=== PATIENT | male | born 1980 | race Two or more races ===

== ENCOUNTER 2020-04-23 15:14 | Emergency (ER) | payer BC ==
[2020-04-23] MEDS ORDERED: Ketorolac 30 MG/ML SDV IVPUSH ONE (15:42)
--- NOTE | 2020-04-23 15:43 | EDM.PDOC ---
ED HPI GENERAL MEDICAL PROBLEM - General Chief Complaint: Respiratory Problem Stated Complaint: SOB/FEVER/SHOULDER/BACK PAIN Time Seen by Provider: 04/23/20 15:31 Source of Information: Reports: Patient, RN Notes Reviewed History Limitations: Reports: No Limitations, Language Barrier (pt is primarily kyrgyz speaking, but does understand Icelandic well) - History of Present Illness INITIAL COMMENTS - FREE TEXT/NARRATIVE: Patient is a 40-year-old male who presents to the ED for the evaluation of his shortness of breath, fever, cough, body aches. Patient is primarily Dominican-sp eaking, but does understand Icelandic well. Patient's vitals, pulse is 106 bpm, temperature is 100.2 F, respiratory rate of 35, blood pressure is 127/68, O2 sats are 85 to 89% on room air. Patient states that this all started fairly quickly yesterday. He notes he has been struggling to breathe since then. He doesn't recall anyone else has been sick like this at home. He did not take any sort of ibuprofen or Tylenol for pain management or otherwise. He denies any prior lung issues or heart issues. - Related Data Allergies Allergy/AdvReac Type Severity Reaction Status Date / Time No Known Allergies Allergy Verified 04/23/20 15:27 Home Meds: Home Meds . [No Known Home Meds] 04/23/20 [History] Past Medical History - Past Health History Medical/Surgical History: Denies Medical/Surgical History Social & Family History - Family History Family Medical History: No Pertinent Family History - Tobacco Use Tobacco Use Status *Q: Never Tobacco User - Caffeine Use Caffeine Use: Reports: Coffee, Soda - Recreational Drug Use Recreational Drug Use: No ED ROS GENERAL - Review of Systems Review Of Systems: Comprehensive ROS is negative, except as noted in HPI. ED EXAM, GENERAL - Physical Exam Exam: See Below Exam Limited By: No Limitations General Appearance: Alert, WD/WN, Mild Distress (pt does appear dyspenic and is taking short, splinting breaths) Respiratory/Chest: No Respiratory Distress, Lungs Clear, No Accessory Muscle Use, Chest Non-Tender, Decreased Breath Sounds (diffuse bilaterally) Cardiovascular: Normal Peripheral Pulses, Regular Rate, Rhythm, No Edema, No Murmur, Tachycardia Peripheral Pulses: 2+: Radial (L), Radial (R) GI/Abdominal: Normal Bowel Sounds, Soft, Non-Tender, No Distention, No Mass Extremities: Normal Inspection, Normal Capillary Refill Neurological: Alert, Oriented, Normal Cognition, No Motor/Sensory Deficits Psychiatric: Normal Affect, Normal Mood Skin Exam: Warm, Dry, Intact, Normal Color, No Rash #1 Interpretation EKG Date: 04/23/20 Time: 15:48 Rhythm: NSR (sinus tach) Rate (Beats/Min): 106 [place]: Normal P-Wave: Present QRS: Normal ST-T: Normal QT: Normal Comparison: NA - No Prior EKG EKG Interpretation Comments: No obvious ischemia or acute ST changes noted, reviewed by myself and Dr. Goudl. Course - Vital Signs Last Recorded V/S: Last Vital Signs Temp 100.2 F 04/23/20 15:22 Pulse 106 H 04/23/20 15:22 Resp 35 H 04/23/20 15:22 BP 127/68 04/23/20 15:22 Pulse Ox 89 L 04/23/20 15:22 - Orders/Labs/Meds Orders: Active Orders 24 hr Category Date Time Status EKG Documentation Completion [RC] STAT Care 04/23/20 15:33 Active Oxygen Therapy, ED [RC] ASDIRECTED Care 04/23/20 15:43 Active Peripheral IV Care [RC] . DIRECTED Care 04/23/20 15:34 Active Ang Chest [CT] Stat Exams 04/23/20 17:41 Taken Chest 1V Frontal [CR] Stat Exams 04/23/20 15:33 Taken Sodium Chloride 0.9% [Saline Flush] Med 04/23/20 15:33 Active 10 ml FLUSH ASDIRECTED PRN Isolation [COMM] Routine Oth 04/23/20 15:33 Ordered Peripheral IV Insertion Adult [OM.PC] Routine Oth 04/23/20 15:34 Ordered Medication Orders Sodium Chloride (Saline Flush) 10 ml FLUSH ASDIRECTED PRN PRN Reason: Keep Vein Open Last Admin: 04/23/20 18:16 Dose: 10 ml Documented by: Admin: 04/23/20 15:55 Dose: 10 ml Documented by: ZEINA Labs: Laboratory Tests 04/23/20 04/23/20 04/23/20 Range/Units 15:33 15:56 15:56 WBC (4.23-9.07) K/mm3 RBC (4.63-6.08) M/mm3 Hgb (13.7-17.5) gm/dl Hct (40.1-51.0) % MCV (79.0-92.2) fl MCH (25.7-32.2) pg MCHC (32.2-35.5) g/dl RDW Std Deviation (35.1-43.9) fL Plt Count (163-337) K/mm3 MPV (9.4-12.3) fl Neutrophils % (Manual) (40-60) % Band Neutrophils % (0-10) % Lymphocytes % (Manual) (20-40) % Atypical Lymphs % % Monocytes % (Manual) (2-10) % Eosinophils % (Manual) (0.8-7.0) % Basophils % (Manual) (0.2-1.2) Platelet Estimate RBC Morph Comment PT (9.7-12.0) SECONDS INR APTT (21.7-31.4) SECONDS D-Dimer, Quantitative (0.19-0.50) mg/L Puncture Site Lt radial ABG pH 7.49 H (7.35-7.45) ABG pCO2 29.5 L (35.0-45.0) mmHg ABG pO2 48.0 L (80.0-100.0) mmHg ABG HCO3 22.5 (22.0-26.0) meq/L ABG O2 Saturation 85.4 L (96.0-97.0) % ABG Base Excess 0.8 (-2-2.0) Samir Test Positive O2 Delivery Device Room air FiO2 0.00 L (21.00-100.00) % Sodium (136-145) mEq/L Potassium (3.5-5.1) mEq/L Chloride (98-107) mEq/L Carbon Dioxide (21-32) mEq/L Anion Gap (5-15) BUN (7-18) mg/dL Creatinine (0.7-1.3) mg/dL Est Cr Clr Drug Dosing mL/min Estimated GFR (MDRD) (>60) mL/min BUN/Creatinine Ratio (14-18) Glucose (74-106) mg/dL Lactic Acid (0.4-2.0) mmol/L Calcium (8.5-10.1) mg/dL Magnesium (1.8-2.4) mg/dl Ferritin (26-388) ng/ml Total Bilirubin (0.2-1.0) mg/dL AST (15-37) U/L ALT (16-63) U/L Alkaline Phosphatase (46-116) U/L Lactate Dehydrogenase (85-227) U/L Troponin I (0.00-0.056) ng/mL C-Reactive Protein 12.7 H* (<1.0) mg/dL NT-Pro-B Natriuret Pep (0-125) pg/mL Total Protein (6.4-8.2) g/dl Albumin (3.4-5.0) g/dl Globulin gm/dL Albumin/Globulin Ratio (1-2) Influenza Type A RNA Negative (NEGATIVE) Influenza Type B RNA Negative (NEGATIVE) SARS-CoV-2 RNA (ISABELL) Positive H (NEGATIVE) 04/23/20 04/23/20 04/23/20 Range/Units 15:56 15:56 15:56 WBC 7.74 (4.23-9.07) K/mm3 RBC 5.10 (4.63-6.08) M/mm3 Hgb 15.2 (13.7-17.5) gm/dl Hct 43.0 (40.1-51.0) % MCV 84.3 (79.0-92.2) fl MCH 29.8 (25.7-32.2) pg MCHC 35.3 (32.2-35.5) g/dl RDW Std Deviation 42.8 (35.1-43.9) fL Plt Count 270 (163-337) K/mm3 MPV 9.6 (9.4-12.3) fl Neutrophils % (Manual) 91 H (40-60) % Band Neutrophils % 0 (0-10) % Lymphocytes % (Manual) 8 L (20-40) % Atypical Lymphs % 0 % Monocytes % (Manual) 1 L (2-10) % Eosinophils % (Manual) 0 L (0.8-7.0) % Basophils % (Manual) 0 L (0.2-1.2) Platelet Estimate Adequate RBC Morph Comment Normal PT 10.9 (9.7-12.0) SECONDS INR 1.02 APTT 32.5 H (21.7-31.4) SECONDS D-Dimer, Quantitative 4.23 H (0.19-0.50) mg/L Puncture Site ABG pH (7.35-7.45) ABG pCO2 (35.0-45.0) mmHg ABG pO2 (80.0-100.0) mmHg ABG HCO3 (22.0-26.0) meq/L ABG O2 Saturation (96.0-97.0) % ABG Base Excess (-2-2.0) Samir Test O2 Delivery Device FiO2 (21.00-100.00) % Sodium 131 L (136-145) mEq/L Potassium 4.5 (3.5-5.1) mEq/L Chloride 97 L (98-107) mEq/L Carbon Dioxide 28 (21-32) mEq/L Anion Gap 10.5 (5-15) BUN 15 (7-18) mg/dL Creatinine 1.0 (0.7-1.3) mg/dL Est Cr Clr Drug Dosing 95.95 mL/min Estimated GFR (MDRD) > 60 (>60) mL/min BUN/Creatinine Ratio 15.0 (14-18) Glucose 132 H (74-106) mg/dL Lactic Acid (0.4-2.0) mmol/L Calcium 8.8 (8.5-10.1) mg/dL Magnesium 2.1 (1.8-2.4) mg/dl Ferritin (26-388) ng/ml Total Bilirubin 0.7 (0.2-1.0) mg/dL AST 82 H (15-37) U/L ALT 132 H (16-63) U/L Alkaline Phosphatase 108 (46-116) U/L Lactate Dehydrogenase 697 H (85-227) U/L Troponin I < 0.017 (0.00-0.056) ng/mL C-Reactive Protein (<1.0) mg/dL NT-Pro-B Natriuret Pep (0-125) pg/mL Total Protein 6.9 (6.4-8.2) g/dl Albumin 2.8 L (3.4-5.0) g/dl Globulin 4.1 gm/dL Albumin/Globulin Ratio 0.7 L (1-2) Influenza Type A RNA (NEGATIVE) Influenza Type B RNA (NEGATIVE) SARS-CoV-2 RNA (ISABELL) (NEGATIVE) 04/23/20 04/23/20 04/23/20 Range/Units 15:56 15:56 15:56 WBC (4.23-9.07) K/mm3 RBC (4.63-6.08) M/mm3 Hgb (13.7-17.5) gm/dl Hct (40.1-51.0) % MCV (79.0-92.2) fl MCH (25.7-32.2) pg MCHC (32.2-35.5) g/dl RDW Std Deviation (35.1-43.9) fL Plt Count (163-337) K/mm3 MPV (9.4-12.3) fl Neutrophils % (Manual) (40-60) % Band Neutrophils % (0-10) % Lymphocytes % (Manual) (20-40) % Atypical Lymphs % % Monocytes % (Manual) (2-10) % Eosinophils % (Manual) (0.8-7.0) % Basophils % (Manual) (0.2-1.2) Platelet Estimate RBC Morph Comment PT (9.7-12.0) SECONDS INR APTT (21.7-31.4) SECONDS D-Dimer, Quantitative (0.19-0.50) mg/L Puncture Site ABG pH (7.35-7.45) ABG pCO2 (35.0-45.0) mmHg ABG pO2 (80.0-100.0) mmHg ABG HCO3 (22.0-26.0) meq/L ABG O2 Saturation (96.0-97.0) % ABG Base Excess (-2-2.0) Samir Test O2 Delivery Device FiO2 (21.00-100.00) % Sodium (136-145) mEq/L Potassium (3.5-5.1) mEq/L Chloride (98-107) mEq/L Carbon Dioxide (21-32) mEq/L Anion Gap (5-15) BUN (7-18) mg/dL Creatinine (0.7-1.3) mg/dL Est Cr Clr Drug Dosing mL/min Estimated GFR (MDRD) (>60) mL/min BUN/Creatinine Ratio (14-18) Glucose (74-106) mg/dL Lactic Acid 1.2 (0.4-2.0) mmol/L Calcium (8.5-10.1) mg/dL Magnesium (1.8-2.4) mg/dl Ferritin 3259 H (26-388) ng/ml Total Bilirubin (0.2-1.0) mg/dL AST (15-37) U/L ALT (16-63) U/L Alkaline Phosphatase (46-116) U/L Lactate Dehydrogenase (85-227) U/L Troponin I (0.00-0.056) ng/mL C-Reactive Protein (<1.0) mg/dL NT-Pro-B Natriuret Pep 24 (0-125) pg/mL Total Protein (6.4-8.2) g/dl Albumin (3.4-5.0) g/dl Globulin gm/dL Albumin/Globulin Ratio (1-2) Influenza Type A RNA (NEGATIVE) Influenza Type B RNA (NEGATIVE) SARS-CoV-2 RNA (ISABELL) (NEGATIVE) Meds: Medications Generic Name Dose Route Start Last Admin Trade Name Freq PRN Reason Stop Dose Admin Sodium Chloride 10 ml 04/23/20 15:33 04/23/20 18:16 Saline Flush FLUSH 10 ml ASDIRECTED PRN Administration Keep Vein Open Discontinued Medications Generic Name Dose Route Start Last Admin Trade Name Freq PRN Reason Stop Dose Admin Dexamethasone 6 mg 04/23/20 17:31 04/23/20 17:53 Decadron IVPUSH 04/23/20 17:32 6 mg ONETIME ONE Administration Remdesivir 200 mg/ Sodium 250 mls @ 250 mls/hr 04/23/20 17:31 04/23/20 17:53 Chloride IV 04/23/20 17:32 250 mls/hr ONETIME ONE Administration Iopamidol 100 ml 04/23/20 17:47 04/23/20 18:16 [id number] (76%) IVPUSH 04/23/20 17:48 100 ml ONETIME ONE Administration Ketorolac Tromethamine 30 mg 04/23/20 15:42 04/23/20 15:54 Toradol IVPUSH 04/23/20 15:43 30 mg ONETIME ONE Administration - Re-Assessments/Exams Free Text/Narrative Re-Assessment/Exam: 04/23/20 15:42 Patient presents to the ED for his ongoing [id number] symptoms. I do believe on patient's clinical presentation that this is likely what he is suffering from. We'll get labs, due to his low oxygen saturations, he will likely need hospital admission. 04/23/20 17:32 Patient is COVID-19 positive. He is requiring supplemental oxygen at this time. PO2 was 48 on room air. He is on 4 L nasal cannula and doing well at this time with 96% saturations. Have called [facility] in [place], they do have a bed available at this time, Dr. Bledsoe is the hospitalist sole conforming machine operator there. 04/23/20 17:48 Dr. Bledsoe did accept the patient for transfer but does request that a CTA be done d/t his rapid decline in oxygenation status as he reported symptom onset yesterday. 04/23/20 17:58 The patient's chest x-ray does appear to be consistent with a COVID-19 type pneumonia as well. 04/23/20 18:[address] demonstrates diffuse patchy airspace opacities noted throughout the lungs bilaterally, findings consistent with edema, viral or atypical pneumonia, other etiologies are not excluded. There is a small right pleural effusion, and no evidence of pulmonary embolism noted. Departure - Departure Time of Disposition: 17:33 Disposition: DC/Tfer to [facility] 02 Condition: Fair Clinical Impression: COVID-19, Hypoxia - Discharge Information *PRESCRIPTION DRUG MONITORING PROGRAM REVIEWED*: No *COPY OF PRESCRIPTION DRUG MONITORING REPORT IN PATIENT RADHA: No Referrals: PCP,None [Primary Care Provider] - Forms: ED Department Discharge Sepsis Event Note (ED) - Evaluation Sepsis Screening Result: Possible Sepsis Risk - Focused Exam Vital Signs: Vital Signs Temp Pulse Resp BP Pulse Ox 04/23/20 15:22 100.2 F 106 H 35 H 127/68 89 L - My Orders Last 24 Hours: My Active Orders 04/23/20 15:33 EKG Documentation Completion [RC] STAT Chest 1V Frontal [CR] Stat Sodium Chloride 0.9% [Saline Flush] 10 ml FLUSH ASDIRECTED PRN Isolation [COMM] Routine 04/23/20 15:34 Peripheral IV Care [RC] . DIRECTED Peripheral IV Insertion Adult [OM.PC] Routine 04/23/20 15:43 Oxygen Therapy, ED [RC] ASDIRECTED 04/23/20 17:41 Ang Chest [CT] Stat - Assessment/Plan Last 24 Hours: My Active Orders 04/23/20 15:33 EKG Documentation Completion [RC] STAT Chest 1V Frontal [CR] Stat Sodium Chloride 0.9% [Saline Flush] 10 ml FLUSH ASDIRECTED PRN Isolation [COMM] Routine 04/23/20 15:34 Peripheral IV Care [RC] . DIRECTED Peripheral IV Insertion Adult [OM.PC] Routine 04/23/20 15:43 Oxygen Therapy, ED [RC] ASDIRECTED 04/23/20 17:41 Ang Chest [CT] Stat
[2020-04-23] MEDS: Sodium Chloride 0.9% 10 ML Syringe FLUSH PRN ×2 (15:55→18:16)
[2020-04-23 17:22] LABS: CORONAVIRUS COVID-19 NAA POSITIVE (NEGATIVE)
[2020-04-23] MEDS ORDERED: REMDESIVIR 200 MG in Sodium Chloride 0.9% 250 ML IV ONE (17:31)
[2020-04-23] MEDS ORDERED: Dexamethasone 10 MG/ML SDV IVPUSH ONE (17:31)
[2020-04-23] MEDS: Iopamidol 755 Mg/ML 100 ML Bottle IVPUSH ONE ×2 (17:46→18:16)
--- NOTE | 2020-04-24 08:06 | CR ---
Chest: Portable view of the chest was obtained. Comparison: No prior chest imaging is available. Findings: Patchy areas of increased density are seen within both sides of the chest, more prominent within the left mid and lower lung. Heart size and mediastinum are normal. Bony structures are grossly intact. Impression: 1. Patchy areas of increased density within both sides of the chest. Given the multifocal nature, findings are suspicious for COVID etiology. Diagnostic code #3
--- NOTE | 2020-04-24 08:37 | CT ---
CT chest Technique: Multiple axial sections through the chest were obtained. Study was obtained from above the lung apices inferiorly through the lung bases. Intravenous contrast was utilized. Study has been performed of the pulmonary angiogram protocol. Comparison: Previous chest x-ray performed earlier on the same date. Findings: Pulmonary arteries are well opacified. No filling defects are seen to indicate pulmonary embolism. Thoracic aorta shows no aneurysm. Small lymph nodes are seen within the mediastinum. No pericardial thickening is seen. Visualized upper abdominal structures show nothing acute. Very minimal right-sided pleural effusion is seen. Lung window settings were obtained which show diffuse parenchymal densities on both sides of the chest. No pleural effusions are seen. Impression: 1. No findings of pulmonary embolism. 2. Diffuse parenchymal densities. Findings most likely relate to COVID etiology. 3. Very minimal right-sided pleural effusion. Diagnostic code #3 I agree with preliminary report from ad, finalized on 04/23/20, 7:31 PM [employer]
== END 2020-04-23 19:25 ==
LOC: JD.ED 15:14
DX: U07.1 COVID-19 (principal); R09.02 Hypoxemia; R00.0 Tachycardia, unspecified
CPT/HCPCS: 0240U; 36415; 36600; 71045; 71275; 80053; 82728; 82803; 83605; 83615; 83735; 83880; 84484; 85007; 85027; 85379; 85610; 85730; 86140; 93005; 96365; 96375; 99285; J1100; J1885; J7050; Q9967; 93010; 99284